=== PATIENT | male | born 1960 | race Caucasian/White ===

== ENCOUNTER 2017-09-18 07:03 | Emergency (ER) | payer BC ==
[~2017-09-18] VITALS: Ht 172.7 cm; Wt 110.0 kg
[2017-09-18 07:05] VITALS: TEMP 36.9; Ht 172.7 cm; Wt 110.0 kg
[2017-09-18] MEDS ORDERED: KETOROLAC TROMETHAMINE 60 MG/2 ML VIAL IM STA (07:20)
[2017-09-18] MEDS ORDERED: CYCLOBENZAPRINE HCL 5 MG TAB PO SCH (07:30)
[2017-09-18] MEDS ORDERED: CYCL10TA6 PO (08:11)
[2017-09-18] MEDS ORDERED: KETO10TA PO (08:11)
[2017-09-18] MEDS ORDERED: PRED20TA PO (08:11)
--- NOTE | 2017-09-18 08:41 | EMERGENCY ROOM VISIT NOTE ---
History First contact with patient: 07:12 Chief Complaint: BACK PAIN Stated Complaint: BACK PAIN History of Present Illness The patient is a 57 year old male who presents to the Emergency Room with complaints of low back pain. The patient states that over the past week he has been doing yard work. He feels like he may have pulled a muscle while he was mowing his grass or pushing a wheelbarrow. The patient complains of some discomfort in his low back that radiates down his right leg to about the knee. He states that it seemed to slowly worsen over the past week. Denies any specific trauma to the area. He reports that certain movements worsen his pain. He denies any abdominal pains, fevers or recent illness. Denies any bowel or bladder dysfunction. Nothing seems to help his symptoms get better. Review of Systems As above otherwise negative for 10 systems Past Medical/Surgical History None Social History Smoking Status: Never Smoker Current/Historical Medications Scheduled Aspirin (Aspirin Ec), 81 MG PO DAILY Cyclobenzaprine Hcl (Flexeril), 1 TAB PO TID Lisinopril (Zestril), 20 MG PO DAILY Prednisone (Prednisone), 2 TAB PO DAILY Simvastatin (Zocor), 40 MG PO QPM Scheduled PRN Ketorolac (Toradol), 10 MG PO Q6H PRN for Pain Physical Exam Vital Signs Date Time Temp Pulse Resp B/P (MAP) Pulse Ox O2 Delivery O2 Flow Rate FiO2 09/18/17 08:51 57 20 164/96 94 09/18/17 07:05 36.9 69 18 169/97 93 Room Air Physical Exam CONSTITUTIONAL/VITAL SIGNS: Reviewed / noted above. GENERAL: Non-toxic in appearance. INTEGUMENTARY: Warm, dry, and [place]. HEAD: Normocephalic. EYES: without scleral icterus or trauma. ENT/OROPHARYNX: clear and moist. LYMPHADENOPATHY/NECK: Is supple without lymphadenopathy or meningismus. RESPIRATORY: Lungs clear and equal. CARDIOVASCULAR: Regular rate and rhythm. GI/ABDOMEN: Soft and nontender. No organomegaly or pulsatile mass. No rebound or guarding. Normal bowel sounds. EXTREMITIES: Warm and well perfused. Negative straight leg raise. Symmetric strength in the bilateral lower extremities with normal sensory and motor function. BACK: No CVA tenderness. There is some tenderness to palpation of the right paraspinal musculature. NEUROLOGICAL: Intact without focal deficits. PSYCHIATRIC: normal affect. MUSCULOSKELETAL: Normally developed with good muscle tone. TRIAGE NURSING DOCUMENTATION REVIEWED. Medical Decision & Procedures ER Provider Diagnostic Interpretation: X-rays of the lumbar spine: Per my interpretation did not show any acute fractures or subluxation. Narrowed disc space L5-S1. Medications Administered Medications (Trade) Dose Ordered Sig/Hernandez Route Start Time Stop Time Status Last Admin Dose Admin Prednisone (PredniSONE TAB) 50 mg ONE ONCE PO 09/18/17 07:30 09/18/17 07:31 DC 09/18/17 07:44 50 MG Ketorolac Tromethamine (Toradol Inj) 60 mg NOW STAT IM 09/18/17 07:20 09/18/17 07:23 DC 09/18/17 07:45 60 MG Cyclobenzaprine HCl (Flexeril Tab) 10 mg NOW PO 09/18/17 07:30 09/18/17 09:06 DC 09/18/17 07:44 10 MG ED Course The patient was treated with Toradol IM, Flexeril p.o. and prednisone p.o. Medical Decision differential considered includes cauda equina syndrome, conus medullaris, spinal cord compression syndrome, peripheral nerve compression, fractures or subluxations, intra-abdominal pathology such as abdominal aortic aneurysm or kidney stones, muscle strain, transverse myelitis, spinal cord injury. This is a 57-year-old male who presents as above with what sounds like a mechanical type of back pain. There was no traumatic injury to his back. He denies any bowel or bladder issues or numbness or weakness in the lower extremities. He does have some tenderness to the right paraspinal musculature on exam. He does report some radiation of the pain into his right buttock area and down to about his knee. His exam was relatively unremarkable with regards to any weakness or sensory deficits. X-rays did not show any acute process. The patient was treated with IM Toradol, p.o. prednisone and p.o. Flexeril. He will be discharged on these. He is felt to be stable for discharge. Blood Pressure Screening Patient's blood pressure: Elevated blood pressure Blood pressure disposition: Elevated BP felt to be situational, Referred to PCP Impression Primary Impression: Low back pain Departure Information Dispostion Home / Self-Care Prescriptions Cyclobenzaprine Hcl (FLEXERIL) 10 Mg Tab 1 TAB PO TID for 10 Days, #30 TAB Prov: Mishock,Mirza, D.O. 09/18/17 Ketorolac (Toradol) 10 Mg Tab 10 MG PO Q6H Y for Pain, #20 TAB Prov: Mirza Long D.O. 09/18/17 Prednisone (Prednisone) 20 Mg Tab 2 TAB PO DAILY for 5 Days, #10 TAB Prov: Mirza Long D.O. 09/18/17 Referrals Xochilt Gatica (PCP) Patient Instructions Back Pain - [facility], [facility] Additional Instructions Prednisone as prescribed. Flexeril as prescribed. This may cause drowsiness. Avoid driving or working with machinery for 6 hours after taking. Toradol as prescribed. Follow-up with your doctor this week for recheck. Your blood pressure today was elevated. Follow-up with your doctor this week for recheck.
[2017-09-18] MEDS ORDERED: ASPI81TA28 PO (08:42)
[2017-09-18] MEDS ORDERED: SIMV40TA2 PO (08:42)
[2017-09-18] MEDS ORDERED: LISI-725 PO (08:42)
[2017-09-18 08:51] VITALS: BP 164/96; PULSE 57; O2SAT 94
--- NOTE | 2017-09-19 10:02 | DIAGNOSTIC IMAGING REPORT ---
L-SPINE MIN 4 VIEWS ROUTINE CLINICAL HISTORY: Low back pain. COMPARISON: None FINDINGS: Alignment of the lumbar spine is anatomic. Vertebral body heights are maintained. There is moderate disc space narrowing at L5-S1. There is multilevel endplate osteophytosis and moderate multilevel facet arthrosis. No acute fracture is identified. Extensive atherosclerotic plaque of the abdominal aorta is noted. IMPRESSION: 1. No acute lumbar spine fracture or subluxation. 2. Moderate disc space narrowing at L5-S1. 3. Moderate multilevel facet arthrosis. 4. Extensive atherosclerotic plaque of the abdominal aorta. Electronically signed by: Clemente Ward M.D. 09/18/2017 8:10 AM Dictated Date/Time: 09/18/2017 8:08 AM
== END 2017-09-18 08:52 | disposition home or self-care (01) ==
LOC: C.EDB 07:05 → C.EDA 08:52
DX: M54.5 Low back pain (principal); R03.0 Elevated blood-pressure reading, without diagnosis of hypertension; Z79.82 Long term (current) use of aspirin